=== PATIENT | female | born 1980 | race American Indian/Alaskan Native ===

== ENCOUNTER 2016-06-13 07:31 | Emergency (ER) | payer MEDICAID, OTHER ==
[~2016-06-13] VITALS: Ht 160 cm; Wt 82.0 kg
[~2016-06-13 07:31] MED LIST: MECL25TA2 PO
[2016-06-13] MEDS ORDERED: ONDANSETRON 2MG/ML, 2ML IVPush ONE (08:00)
[2016-06-13] MEDS ORDERED: FAMOTIDINE 20 MG/2 ML IVP ONE (08:00)
[2016-06-13] MEDS ORDERED: SODIUM CHLORIDE 0.9% 1,000ML IVBOLUS ONE (08:00)
[2016-06-13] MEDS ORDERED: ONDANSETRON 2MG/ML, 2ML ONE (08:02)
[2016-06-13] MEDS ORDERED: FAMOTIDINE 20 MG/2 ML ONE (08:02)
[2016-06-13 08:23] LABS: HEMOGLOBIN 9.4 g/dL (11.7-16.4)
[2016-06-13 08:30] LABS: ASPARTATE AMINO TRANSFERASE 24 U/L (15-37); BLOOD UREA NITROGEN 17 mg/dL (7-18)
[2016-06-13] MEDS ORDERED: SODIUM CHLORIDE FLUSH 10ML SYR IVF ONE (09:00)
[2016-06-13 10:50] VITALS: BP 113/69
== END 2016-06-13 11:00 | disposition home or self-care (01) ==
LOC: ED 08:28
DX: K52.9 Noninfective gastroenteritis and colitis, unspecified (principal); E03.9 Hypothyroidism, unspecified
CPT/HCPCS: 36415; 80053; 81003; 83690; 84703; 85025; 96361; 96374; 96375; 99285; J2405; J7030; S0028

== ENCOUNTER 2016-09-06 12:20 | Emergency (ER) | payer OTHER ==
[~2016-09-06] VITALS: Ht 160 cm; Wt 82.1 kg
[2016-09-06] MEDS ORDERED: SODIUM CHLORIDE 0.9% 1,000ML IVBOLUS ONE (14:00)
[2016-09-06] MEDS ORDERED: SODIUM CHLORIDE FLUSH 10ML SYR IVF ONE (14:00)
[2016-09-06 14:36] LABS: HCG UR OBC PASS
[2016-09-06 14:38] VITALS: BP 123/57
[2016-09-06 14:46] LABS: BLOOD UREA NITROGEN 18 mg/dL (7-18)
[2016-09-06 14:50] LABS: ASPARTATE AMINO TRANSFERASE 12 U/L (15-37)
== END 2016-09-06 15:37 | disposition home or self-care (01) ==
LOC: ED 14:33
DX: R11.2 Nausea with vomiting, unspecified (principal); R50.9 Fever, unspecified; N28.89 Other specified disorders of kidney and ureter
CPT/HCPCS: 36415; 70450; 80053; 81001; 81025; 82962; 83735; 85025; 87086; 93005; 96360; 99285; J7030

== ENCOUNTER → 2016-09-19 | Outpatient (CLI) | payer OTHER | END | disposition home or self-care (01) | LOC: CFH 09:37 | PROVIDERS: ATTEND Pain Medicine Pain Medicine | DX: M51.16 Intervertebral disc disorders with radiculopathy, lumbar region (principal); M47.897 Other spondylosis, lumbosacral region | CPT/HCPCS: 72148 ==

== ENCOUNTER 2016-11-12 15:31 | Emergency (ER) | payer OTHER ==
[~2016-11-12] VITALS: Ht 160 cm; Wt 82.3 kg
[2016-11-12 15:32] VITALS: BP 137/89
[2016-11-12] MEDS ORDERED: DIPH,PERTUSS(ACELL),TET VAC/PF 0.5 ML IM-VACC ONE ×2 (15:51→16:00)
[2016-11-12] MEDS ORDERED: LIDOCAINE 1%, 20ML INFIL ONE (16:00)
[2016-11-12] MEDS ORDERED: BACITRACIN ZINC OINT 500U/GM, 0.9 GM ONE (16:11)
== END 2016-11-12 16:26 | disposition home or self-care (01) ==
LOC: ED 16:10
DX: S61.213A Laceration without foreign body of left middle finger without damage to nail, initial encounter (principal); X58.XXXA Exposure to other specified factors, initial encounter; Y93.89 Activity, other specified; Y92.89 Other specified places as the place of occurrence of the external cause; Y99.8 Other external cause status
CPT/HCPCS: 90471; 90715

== ENCOUNTER → 2016-11-19 | Outpatient (CLI) | payer OTHER ==
[~2016-11-19] MED LIST changes: +GADOBUTROL 7.5 MMOL/7.5 ML PFS ONE
== END | disposition home or self-care (01) ==
LOC: CFH 09:14
PROVIDERS: ATTEND Nurse Practitioner
DX: G54.8 Other nerve root and plexus disorders (principal)
CPT/HCPCS: 72149; 82565; A9585

== ENCOUNTER 2016-12-28 07:00 | Emergency (ER) | payer OTHER ==
[~2016-12-28] VITALS: Ht 160 cm; Wt 82.0 kg
[~2016-12-28 07:00] MED LIST changes: -GADOBUTROL 7.5 MMOL/7.5 ML PFS ONE
[2016-12-28 07:05] VITALS: BP 118/74
[2016-12-28] MEDS ORDERED: OXYcodone/APAP 5/325MG TABLET ONE (07:38)
[2016-12-28] MEDS ORDERED: OXYcodone/APAP 5/325MG TABLET PO ONE (08:00)
== END 2016-12-28 08:10 | disposition home or self-care (01) ==
LOC: ED 07:14
DX: S39.012A Strain of muscle, fascia and tendon of lower back, initial encounter (principal); S29.012A Strain of muscle and tendon of back wall of thorax, initial encounter; N28.9 Disorder of kidney and ureter, unspecified; W18.40XA Slipping, tripping and stumbling without falling, unspecified, initial encounter; Y93.01 Activity, walking, marching and hiking; Y92.89 Other specified places as the place of occurrence of the external cause; Y99.8 Other external cause status
CPT/HCPCS: 99282

== ENCOUNTER 2017-01-27 18:36 | Emergency (ER) | payer OTHER ==
[~2017-01-27] VITALS: Ht 160 cm; Wt 82.9 kg
[2017-01-27 18:45] VITALS: BP 126/79
[2017-01-27] MEDS ORDERED: ONDANSETRON ODT 4 MG PO ONE (19:30)
[2017-01-27] MEDS ORDERED: LIDOCAINE 1%, 20ML SQ ONE (19:30)
[2017-01-27] MEDS ORDERED: ONDANSETRON ODT 4 MG ONE (19:52)
[2017-01-27] MEDS ORDERED: HYDROcodone/APAP 5/325 TABLET ONE (20:09)
[2017-01-27] MEDS ORDERED: HYDROcodone/APAP 5/325 TABLET PO ONE (20:30)
== END 2017-01-27 20:31 | disposition home or self-care (01) ==
LOC: ED 20:24
DX: S00.03XA Contusion of scalp, initial encounter (principal); F12.10 Cannabis abuse, uncomplicated; W19.XXXA Unspecified fall, initial encounter; Y93.89 Activity, other specified; Y92.89 Other specified places as the place of occurrence of the external cause; Y99.8 Other external cause status
CPT/HCPCS: 70450; 93005; 99284; Q0162

== ENCOUNTER 2017-02-19 06:00 | Emergency (ER) | payer OTHER ==
[~2017-02-19] VITALS: Ht 160 cm; Wt 83.8 kg
[2017-02-19] MEDS ORDERED: LORazepam 1MG TABLET ONE (06:47)
[2017-02-19 06:52] LABS: HEMATOCRIT 29.8 % (34.6-47.8); HEMOGLOBIN 9.4 g/dL (11.7-16.4); WHITE BLOOD COUNT 4.1 x10^3/uL (3.4-10)
[2017-02-19] MEDS ORDERED: LEVO125T5 PO (06:59)
[2017-02-19] MEDS ORDERED: LORazepam 1MG TABLET PO ONE (07:00)
[2017-02-19 07:05] LABS: ASPARTATE AMINO TRANSFERASE 10 U/L (15-37); BLOOD UREA NITROGEN 18 mg/dL (7-18)
[2017-02-19 07:13] LABS: IS PT STATUS REG ER OR PRE ER? YES
[2017-02-19 08:37] VITALS: BP 107/59
== END 2017-02-19 08:39 | disposition home or self-care (01) ==
LOC: ED 07:56
DX: R00.2 Palpitations (principal); E03.9 Hypothyroidism, unspecified
CPT/HCPCS: 36415; 71010; 80053; 84443; 84484; 84703; 85025; 85610; 85730; 93005; 99285

== ENCOUNTER 2017-06-02 21:21 | Emergency (ER) | payer OTHER ==
[~2017-06-02] VITALS: Ht 160 cm; Wt 80.0 kg
[~2017-06-02 21:21] MED LIST changes: +LEVO125T5 PO
[2017-06-02 22:06] LABS: BASOPHILS # (AUTO) 0.02 x10^3/uL (0-0.1); BASOPHILS % (AUTO) 0 % (0-1); EOSINOPHILS # (AUTO) 0.04 x10^3/uL (0-0.4); EOSINOPHILS % (AUTO) 1 % (1-7); LYMPHOCYTES # (AUTO) 0.91 x10^3/uL (1-3.4); LYMPHOCYTES % (AUTO) 11 % (22-44); MD NO; MEAN CORPUSCULAR HEMOGLOBIN 20.1 pg (27.0-34.8); MEAN CORPUSCULAR VOLUME 64.9 fL (80-100); MEAN PLATELET VOLUME 6.6 fL (7.4-10.4); MONOCYTES # (AUTO) 0.49 x10^3/uL (0.2-0.8); MONOCYTES % (AUTO) 6 % (2-9); NEUTROPHILS # (AUTO) 6.89 x10^3/uL (1.8-6.8); NEUTROPHILS % (AUTO) 83 % (42-75); PLATELET COUNT 507 x10^3/uL (130-400); RED BLOOD COUNT 4.82 x10^6/uL (3.82-5.3); RED CELL DISTRIBUTION WIDTH 17.4 % (9.6-15.2)
[2017-06-02 22:18] LABS: ALANINE AMINOTRANSFERASE 18 U/L (12-78); ALBUMIN 3.5 g/dL (3.4-5.0); ANION GAP 7 mmol/L (5-15); CALCIUM 8.2 mg/dL (8.5-10.1); CHLORIDE 104 mmol/L (98-107); CREATININE 0.84 mg/dL (0.55-1.02)
[2017-06-02 22:22] LABS: ALKALINE PHOSPHATASE 97 U/L (45-117); BILIRUBIN,TOTAL 0.4 mg/dL (0.2-1.0); TOTAL PROTEIN 7.3 g/dL (6.4-8.2)
[2017-06-02 22:48] VITALS: BP 124/72
== END 2017-06-02 23:34 | disposition home or self-care (01) ==
LOC: ED 21:55
DX: R55 Syncope and collapse (principal); E03.1 Congenital hypothyroidism without goiter; Z88.0 Allergy status to penicillin; Z88.6 Allergy status to analgesic agent
CPT/HCPCS: 36415; 80053; 82962; 84443; 84703; 85025; 93005; 99285

== ENCOUNTER 2017-09-05 21:05 | Emergency (ER) | payer OTHER ==
[~2017-09-05] VITALS: Ht 160 cm; Wt 78.6 kg
[~2017-09-05 21:05] MED LIST changes: +HYDR-3237 PO; +LEVO25TA4 PO; +METH750T2 PO; +NABU750T PO; +TRAM100T3 PO
[2017-09-05 21:10] VITALS: BP 156/104
[2017-09-05] MEDS ORDERED: ONDANSETRON ODT 4 MG PO ONE (21:30)
[2017-09-05] MEDS ORDERED: IBUPROFEN 800 MG TABLET ONE (21:38)
[2017-09-05] MEDS ORDERED: ONDANSETRON ODT 4 MG ONE (21:39)
[2017-09-05 21:45] LABS: BASOPHILS # (AUTO) 0.05 x10^3/uL (0-0.1); BASOPHILS % (AUTO) 1 % (0-1); EOSINOPHILS # (AUTO) 0.13 x10^3/uL (0-0.4); EOSINOPHILS % (AUTO) 2 % (1-7); LYMPHOCYTES # (AUTO) 0.87 x10^3/uL (1-3.4); LYMPHOCYTES % (AUTO) 12 % (22-44); MD NO; MEAN CORPUSCULAR HEMOGLOBIN 20.1 pg (27.0-34.8); MEAN CORPUSCULAR HGB CONC 31.2 g/dL (32.4-35.8); MEAN CORPUSCULAR VOLUME 64.4 fL (80-100); MEAN PLATELET VOLUME 6.8 fL (7.4-10.4); MONOCYTES # (AUTO) 0.58 x10^3/uL (0.2-0.8); MONOCYTES % (AUTO) 8 % (2-9); NEUTROPHILS # (AUTO) 5.45 x10^3/uL (1.8-6.8); NEUTROPHILS % (AUTO) 77 % (42-75); PLATELET COUNT 528 x10^3/uL (130-400); RED BLOOD COUNT 4.75 x10^6/uL (3.82-5.3); RED CELL DISTRIBUTION WIDTH 16.4 % (9.6-15.2)
[2017-09-05] MEDS ORDERED: IBUPROFEN 200 MG TABLET ONE (21:46)
[2017-09-05 21:51] LABS: ALANINE AMINOTRANSFERASE 23 U/L (12-78); ALBUMIN 3.8 g/dL (3.4-5.0); ANION GAP 7 mmol/L (5-15); CALCIUM 8.6 mg/dL (8.5-10.1); CHLORIDE 106 mmol/L (98-107); CREATININE 0.73 mg/dL (0.55-1.02)
[2017-09-05 21:56] LABS: ALKALINE PHOSPHATASE 96 U/L (45-117); BILIRUBIN,TOTAL 0.2 mg/dL (0.2-1.0); TOTAL PROTEIN 7.5 g/dL (6.4-8.2)
[2017-09-05 21:56] LABS: MICROSCOPIC INDICATED
[2017-09-05 21:57] LABS: CULTURE INDICATED? YES
[2017-09-05] MEDS ORDERED: IBUPROFEN 200 MG TABLET PO ONE (22:00)
== END 2017-09-05 22:26 | disposition home or self-care (01) ==
LOC: ED 22:05
DX: N30.90 Cystitis, unspecified without hematuria (principal); R19.7 Diarrhea, unspecified; R11.2 Nausea with vomiting, unspecified; M54.5 Low back pain; E03.9 Hypothyroidism, unspecified; Z88.0 Allergy status to penicillin
CPT/HCPCS: 36415; 80053; 81001; 83690; 84703; 85025; 87086; 87147; 99284; Q0162

== ENCOUNTER 2017-09-26 06:29 | Emergency (ER) | payer OTHER ==
[~2017-09-26] VITALS: Ht 160 cm; Wt 78.4 kg
[2017-09-26] MEDS ORDERED: MECLIZINE CHEWABLE 25 MG TAB PO ONE (07:00)
[2017-09-26] MEDS ORDERED: SODIUM CHLORIDE 0.9% 1,000ML IVBOLUS ONE (07:00)
[2017-09-26] MEDS ORDERED: SODIUM CHLORIDE FLUSH 10ML SYR IVF ONE (07:00)
[2017-09-26] MEDS ORDERED: MECLIZINE CHEWABLE 25 MG TAB ONE (07:08)
[2017-09-26 07:14] LABS: MEAN CORPUSCULAR HEMOGLOBIN 19.6 pg (27.0-34.8); MEAN CORPUSCULAR HGB CONC 30.6 g/dL (32.4-35.8); MEAN CORPUSCULAR VOLUME 63.9 fL (80-100); MEAN PLATELET VOLUME 6.5 fL (7.4-10.4); PLATELET COUNT 496 x10^3/uL (130-400); RED BLOOD COUNT 4.72 x10^6/uL (3.82-5.3); RED CELL DISTRIBUTION WIDTH 17.1 % (9.6-15.2)
[2017-09-26 07:30] LABS: BASOPHILS % (AUTO) 0 % (0-1); EOSINOPHILS # (AUTO) 0.09 x10^3/uL (0-0.4); EOSINOPHILS % (AUTO) 2 % (1-7); LYMPHOCYTES # (AUTO) 0.41 x10^3/uL (1-3.4); LYMPHOCYTES % (AUTO) 9 % (22-44); MD MORPH REVIEW ONLY; MONOCYTES # (AUTO) 0.29 x10^3/uL (0.2-0.8); MONOCYTES % (AUTO) 6 % (2-9); NEUTROPHILS # (AUTO) 3.95 x10^3/uL (1.8-6.8); NEUTROPHILS % (AUTO) 83 % (42-75)
[2017-09-26 07:31] LABS: <PLATELET ESTIMATE> INCREASED; <PLT MORPHOLOGY> NORMAL PLT MORPH; ANISOCYTOSIS 1+; HYPOCHROMIA 1+; MICROCYTOSIS 1+
[2017-09-26 07:41] LABS: ALBUMIN 3.6 g/dL (3.4-5.0); ANION GAP 8 mmol/L (5-15); CALCIUM 8.5 mg/dL (8.5-10.1); CHLORIDE 107 mmol/L (98-107); CREATININE 0.87 mg/dL (0.55-1.02)
[2017-09-26 07:44] LABS: TROPONIN I < 0.015 ng/mL (0.000-0.045)
[2017-09-26 08:24] VITALS: BP 112/69
== END 2017-09-26 08:36 | disposition home or self-care (01) ==
LOC: ED 07:13
DX: R42 Dizziness and giddiness (principal); R53.1 Weakness; E03.9 Hypothyroidism, unspecified; N28.9 Disorder of kidney and ureter, unspecified
CPT/HCPCS: 36415; 80048; 82040; 84484; 84703; 85025; 93005; 96360; 99285; J7030

== ENCOUNTER → 2018-01-21 | Outpatient (CLI) | payer OTHER ==
[~2018-01-21] MED LIST changes: +GADOBUTROL 7.5 MMOL/7.5 ML PFS ONE
== END | disposition home or self-care (01) ==
LOC: CFH 07:17
PROVIDERS: ATTEND Psychiatry & Neurology Neurology
DX: M47.897 Other spondylosis, lumbosacral region (principal); R90.82 White matter disease, unspecified; Q85.01 Neurofibromatosis, type 1
CPT/HCPCS: 70553; 72158; 82565; A9585

== ENCOUNTER 2018-10-09 15:27 | Outpatient (CLI) | payer OTHER | END 2018-10-09 23:59 | disposition home or self-care (01) | LOC: CFH 15:27 | DX: M25.552 Pain in left hip (principal) ==